=== PATIENT | male | born 1965 | race Caucasian/White ===

== ENCOUNTER 2022-11-21 02:10 | Inpatient (IN) | payer SELFPAY ==
[~2022-11-21] VITALS: Ht 188 cm; Wt 208.2 kg
[2022-11-21 02:49] LABS: BASOPHILS % 0.4 % (0.0-2.0); EOSINOPHILS % 0.7 % (0.0-5.0); HEMATOCRIT. 47.2 % (42.0-52.0); HEMOGLOBIN. 15.4 g/dL (14.0-18.0); LYMPHOCYTES % 12.7 % (20.0-50.0); MEAN CORPUSCULAR HEMOGLOBIN 25.8 pg (28.0-32.0); MEAN CORPUSCULAR VOLUME 79.1 fL (80.0-94.0); MONOCYTES % 5.5 % (2.0-8.0); NEUTROPHILS % 80.7 % (40.0-76.0); PLATELET 333 x1000/uL (130-400); RED BLOOD CELL COUNT 5.98 mill/uL (4.7-6.1); RED CELL DISTRIBUTION WIDTH 16.9 % (11.6-14.6)
[2022-11-21 03:13] LABS: CHLORIDE 106 mEq/L (98-107)
[2022-11-21 03:17] LABS: INR 1.1; PROTHROMBIN TIME 11.4 sec (9.6-11.0)
[2022-11-21 03:24] LABS: ETHANOL BLOOD < 10 mg/dL
[2022-11-21] MEDS ORDERED: IOHEXOL-350 100 ML BOTTLE ONE (04:39)
[2022-11-21 07:41] LABS: CLARITY URINE CLEAR (CLEAR); COLOR URINE YELLOW (YELLOW); KETONES URINE NEGATIVE (NEGATIVE); LEUKOCYTE ESTERASE URINE TRACE (NEGATIVE); NITRITE URINE NEGATIVE (NEGATIVE); OCCULT BLOOD URINE NEGATIVE (NEGATIVE); PROTEIN URINE 2+ (NEGATIVE); SPECIFIC GRAVITY URINE 1.048 (1.005-1.030); UROBILINOGEN URINE 0.2 E.U./dL (0.2-1.0)
[2022-11-21] MEDS ORDERED: DOCUSATE SODIUM 100MG CAPSULE PO PRN (07:45)
[2022-11-21] MEDS ORDERED: GUAIFENESIN 200MG/10ML SUGAR FREE UDC PO PRN (07:45)
[2022-11-21] MEDS ORDERED: ACETAMINOPHEN 325MG TABLET PO PRN ×2 (07:45)
[2022-11-21] MEDS ORDERED: NA PHOS,M-B/NA PHOS,DI-BA ENEMA 118ML PR PRN (07:45)
[2022-11-21] MEDS ORDERED: HYDROCODONE/ACETAMINOPHEN 5/325MG TABLET PO PRN (07:45)
[2022-11-21] MEDS ORDERED: MAGNESIUM/ALUMINUM HYDROXIDE/SIMETHICONE 30ML UDC PO PRN (07:45)
[2022-11-21] MEDS ORDERED: ONDANSETRON HCL 4MG/2ML INJ IV PRN (07:45)
[2022-11-21] MEDS ORDERED: IPRATROPIUM/ALBUTEROL 0.5-3(2.5)MG/3ML NEB HHN PRN (07:45)
[2022-11-21] MEDS ORDERED: NALOXONE HCL 0.4MG/ML VIAL IV PRN (07:45)
[2022-11-21] MEDS ORDERED: CLONIDINE 0.1MG TABLET PO PRN (07:45)
[2022-11-21 08:15] LABS: *AMPHETAMINES SCREEN URINE NEGATIVE (NEGATIVE); *BARBITURATES SCREEN URINE NEGATIVE (NEGATIVE); *BENZODIAZEPINES SCREEN URINE NEGATIVE (NEGATIVE); *COCAINE SCREEN URINE PRESUMTIVE POSITIVE (NEGATIVE); CANNABINOID URINE SCREEN NEGATIVE (NEGATIVE); METHADONE URINE SCREEN NEGATIVE (NEGATIVE); OPIATES URINE SCREEN NEGATIVE (NEGATIVE); PHENCYCLIDINE URINE SCREEN NEGATIVE (NEGATIVE)
[2022-11-21] MEDS ORDERED: DEXTROSE 50% WATER 50ML SYRINGE IV PRN (08:15)
[2022-11-21] MEDS ORDERED: ASPIRIN 81MG TABLET PO NR (08:15)
[2022-11-21] MEDS: INSULIN LISPRO 100 UNITS/ML SUBCUT SCH ×4 (08:20→20:51)
[2022-11-21] MEDS: BLOOD SUGAR DIAGNOSTIC STRIP TEST SCH ×4 (09:00→20:49)
[2022-11-21] MEDS ORDERED: ENOXAPARIN 40MG/0.4ML SYR SUBCUT SCH (09:00)
[2022-11-21 10:00] VITALS: BP 140/93
[2022-11-21 10:13] VITALS: BP 140/93
[2022-11-21] MEDS: PANTOPRAZOLE SODIUM 40 MG/VIAL IV SCH (10:52)
[2022-11-21] MEDS: METOPROLOL SUCCINATE 50MG ER TABLET PO SCH (10:53)
[2022-11-21] MEDS: APIXABAN 5 MG TABLET PO SCH ×2 (10:53→17:38)
[2022-11-21 13:28] LABS: PHOSPHORUS 3.3 mg/dL (2.5-4.9); T4 FREE 0.84 ng/dL (0.76-1.46)
[2022-11-21] MEDS ORDERED: SODIUM CHLORIDE 0.9% 1,000 ML IV ONE (14:30)
[2022-11-21 16:00] VITALS: BP 100/68
[2022-11-21 20:00] VITALS: BP 101/66
[2022-11-21] MEDS: ATORVASTATIN CALCIUM 40MG TABLET PO SCH (20:50)
[2022-11-22] VITALS: BP 101/50
[2022-11-22] MEDS: BLOOD SUGAR DIAGNOSTIC STRIP TEST SCH ×4 (06:34→20:55)
[2022-11-22] MEDS: INSULIN LISPRO 100 UNITS/ML SUBCUT SCH ×4 (07:40→20:55)
[2022-11-22 08:00] VITALS: BP 85/51
[2022-11-22] MEDS: PANTOPRAZOLE SODIUM 40 MG/VIAL IV SCH (09:00)
[2022-11-22] MEDS: METOPROLOL SUCCINATE 50MG ER TABLET PO SCH (09:00)
[2022-11-22] MEDS: APIXABAN 5 MG TABLET PO SCH ×2 (11:45→17:23)
[2022-11-22 12:00] VITALS: BP 129/55
[2022-11-22 16:00] VITALS: BP 98/54
[2022-11-22] MEDS: ATORVASTATIN CALCIUM 40MG TABLET PO SCH (20:54)
[2022-11-23] VITALS: BP 120/70
[2022-11-23] MEDS: BLOOD SUGAR DIAGNOSTIC STRIP TEST SCH ×4 (07:10→20:59)
[2022-11-23 07:15] LABS: HEMATOCRIT 37.7 % (42.0-52.0); HEMOGLOBIN 12.4 g/dL (14.0-18.0); MEAN CORPUSCULAR HEMOGLOBIN 26.1 pg (28.0-32.0); MEAN CORPUSCULAR VOLUME 79.1 fL (80.0-94.0); PLATELET 217 x1000/uL (130-400); RED BLOOD CELL COUNT 4.76 mill/uL (4.7-6.1); RED CELL DISTRIBUTION WIDTH 16.3 % (11.6-14.6)
[2022-11-23] MEDS: INSULIN LISPRO 100 UNITS/ML SUBCUT SCH ×4 (07:23→21:00)
[2022-11-23 07:45] LABS: CHLORIDE 109 mEq/L (98-107)
[2022-11-23 08:00] VITALS: BP 117/69
[2022-11-23] MEDS: METOPROLOL SUCCINATE 50MG ER TABLET PO SCH (09:00)
[2022-11-23] MEDS: APIXABAN 5 MG TABLET PO SCH ×2 (09:39→17:29)
[2022-11-23] MEDS: FAMOTIDINE 20MG TABLET PO SCH ×2 (09:40→20:59)
[2022-11-23 11:34] VITALS: BP 110/69
[2022-11-23 20:00] VITALS: BP 111/56
[2022-11-23] MEDS: ATORVASTATIN CALCIUM 40MG TABLET PO SCH (20:52)
[2022-11-24] VITALS: BP 138/61
[2022-11-24 04:00] VITALS: BP_SYST 131
[2022-11-24] MEDS: BLOOD SUGAR DIAGNOSTIC STRIP TEST SCH ×5 (05:43→21:17)
[2022-11-24 08:00] VITALS: BP 115/72
[2022-11-24] MEDS: INSULIN LISPRO 100 UNITS/ML SUBCUT SCH ×4 (08:01→21:16)
[2022-11-24] MEDS: FAMOTIDINE 20MG TABLET PO SCH ×2 (09:13→21:15)
[2022-11-24] MEDS: APIXABAN 5 MG TABLET PO SCH ×2 (09:13→17:57)
[2022-11-24] MEDS: METOPROLOL SUCCINATE 50MG ER TABLET PO SCH (09:19)
[2022-11-24 12:00] VITALS: BP 98/74
[2022-11-24 16:00] VITALS: BP 112/74
[2022-11-24 20:00] VITALS: BP 102/60
[2022-11-24] MEDS: ATORVASTATIN CALCIUM 40MG TABLET PO SCH (21:15)
[2022-11-25] VITALS: BP 128/76
[2022-11-25 04:00] VITALS: BP 118/77
[2022-11-25] MEDS: BLOOD SUGAR DIAGNOSTIC STRIP TEST SCH ×4 (06:17→21:10)
[2022-11-25 08:00] VITALS: BP 122/77
[2022-11-25] MEDS: METOPROLOL SUCCINATE 50MG ER TABLET PO SCH (10:54)
[2022-11-25] MEDS: APIXABAN 5 MG TABLET PO SCH ×2 (10:54→18:18)
[2022-11-25] MEDS: FAMOTIDINE 20MG TABLET PO SCH ×2 (10:54→21:11)
[2022-11-25] MEDS: INSULIN LISPRO 100 UNITS/ML SUBCUT SCH ×4 (11:09→21:00)
[2022-11-25 12:00] VITALS: BP 138/72
[2022-11-25 16:00] VITALS: BP 146/92
[2022-11-25] MEDS ORDERED: FUROSEMIDE 20MG TABLET PO NR (17:45)
[2022-11-25 20:00] VITALS: BP 169/73
[2022-11-25] MEDS: ATORVASTATIN CALCIUM 40MG TABLET PO SCH (21:11)
[2022-11-26 00:28] VITALS: BP 149/89
== END 2022-11-26 05:00 | disposition home or self-care (01) | DRG 199 ==
LOC: ER 02:10 → 8WST 05:10 → EDBEDREQTM 05:39 → EDBEDREQ 05:39 → EDBEDREQSVC 05:39 → ENRESERV 08:44 → 7WST 11-24 06:16
PROVIDERS: ADMIT Internal Medicine; ATTEND Internal Medicine
DX: I16.1 Hypertensive emergency (principal); N17.0 Acute kidney failure with tubular necrosis; Z68.43 Body mass index [BMI] 50.0-59.9, adult; I50.9 Heart failure, unspecified; I48.20 Chronic atrial fibrillation, unspecified; E66.01 Morbid (severe) obesity due to excess calories; I13.0 Hypertensive heart and chronic kidney disease with heart failure and stage 1 through stage 4 chronic kidney disease, or unspecified chronic kidney disease; N18.9 Chronic kidney disease, unspecified; Z20.822 Contact with and (suspected) exposure to COVID-19; E03.8 Other specified hypothyroidism; F17.200 Nicotine dependence, unspecified, uncomplicated; I25.10 Atherosclerotic heart disease of native coronary artery without angina pectoris; F19.90 Other psychoactive substance use, unspecified, uncomplicated; T40.5X5A Adverse effect of cocaine, initial encounter; Z79.01 Long term (current) use of anticoagulants; Z79.82 Long term (current) use of aspirin; Z95.5 Presence of coronary angioplasty implant and graft; Z79.899 Other long term (current) drug therapy; Y92.89 Other specified places as the place of occurrence of the external cause
CPT/HCPCS: 36415; 71045; 80048; 80053; 80061; 80305; 80320; 81003; 82962; 83036; 83735; 83880; 84100; 84439; 84443; 84484; 85025; 85027; 87426; 93005; 93306; 93880; 93970; 97110; 97162; 97166; 97530; 97535; 99291; C9113; J1815; Q9967; G0480